=== PATIENT | male | born 1945 | race Hispanic/Latino ===

== ENCOUNTER 2021-08-20 05:39 | Day surgery (SDC) | payer MEDICARE ==
[2021-08-18 12:31] LABS: BASOPHILS % (AUTO) 0.7 % (0.0-5.0); HEMATOCRIT 32.6 % (42-54); LYMPHOCYTES % (AUTO) 23.8 % (21.0-51.0); MEAN CORPUSCULAR HEMOGLOBIN 20.7 pg (27.0-33.0); MEAN CORPUSCULAR VOLUME 66.9 fL (79-99); MONOCYTES % (AUTO) 5.6 % (3.0-13.0); NEUTROPHILS % (AUTO) 67.6 % (40.0-77.0); PLATELET COUNT (AUTO) 211 K/uL (130-400); RED BLOOD CELL COUNT(AUTO) 4.87 MIL/uL (4.50-6.20); RED CELL DISTRIBUTION WIDTH 16.7 % (11.0-15.5); WHITE BLOOD COUNT (AUTO) 7.4 K/uL (4.8-10.8)
[2021-08-18 12:41] LABS: CREATININE 1.3 mg/dL (0.5-1.5); POTASSIUM 4.2 mmol/L (3.5-5.1)
[2021-08-18 12:43] LABS: INR 1.04 (0.85-1.15); PROTHROMBIN TIME 11.3 SEC (9.6-11.6)
[2021-08-18 12:45] LABS: PARTIAL THROMBOPLASTIN TIME 30.5 SEC (26.3-35.5)
[2021-08-19 13:22] VITALS: BP 141/50
[2021-08-20] VITALS (10 sets, daily range): BP systolic 122–145; BP diastolic 48–78
[~2021-08-20] VITALS: Ht 175.3 cm; Wt 119.9 kg
[~2021-08-20 05:39] MED LIST: ATOR10TA69 PO; BUSP15TA3 PO; DULO60CA64 PO; FOLI1 PO; FURO20TA4 PO; GABA-533 PO; HYDR-4153 PO; LISI20TA24 PO; MV-M1TAB20 PO; OMEP20CA12 PO; TIMO1DRO5 OP; TRAM50TA4 PO; TRAV2.5D OD; TRAZ-187 PO
[2021-08-20] MEDS ORDERED: 0.9%NACL 1000ML 1,000 ML IV ONE (06:10)
[2021-08-20] MEDS ORDERED: BUPIVACAINE/PF 0.25% 30ML VIAL IJ ONE (07:23)
[2021-08-20] MEDS ORDERED: MIDAZOLAM HCL 1 MG/ML 2ML VIAL ONE ×4 (07:23→08:39)
[2021-08-20] MEDS ORDERED: MEPERIDINE-PF 25 MG/ML SYG ONE ×4 (07:23→08:39)
[2021-08-20] MEDS ORDERED: LIDOCAINE HCL 1% MDV 50ML VIAL ONE (07:24)
[2021-08-20] MEDS ORDERED: CEFAZOLIN SODIUM 1 GM VIAL ONE (07:24)
[2021-08-20] MEDS ORDERED: ACETAMINOPHEN WITH CODEINE 1 TAB TAB PO PRN (10:00)
== END 2021-08-20 13:00 | disposition home or self-care (01) ==
LOC: DAH 05:39
PROVIDERS: ATTEND Internal Medicine Cardiovascular Disease
DX: Z45.02 Encounter for adjustment and management of automatic implantable cardiac defibrillator (principal); I42.8 Other cardiomyopathies; I50.22 Chronic systolic (congestive) heart failure; I44.2 Atrioventricular block, complete; I44.7 Left bundle-branch block, unspecified; I49.8 Other specified cardiac arrhythmias; Z79.899 Other long term (current) drug therapy; Z79.01 Long term (current) use of anticoagulants
CPT/HCPCS: 33264; 36415; 80048; 85025; 85610; 85730; 93005; A4215; A4216; A4221; A4222; A4223 ×3; A4606; A4663; C1882; J0690; J2175 ×4; J2250 ×4; J3490 ×2; J7030; 99156; 99157